=== PATIENT | female | born 1940 | race Caucasian/White ===

== ENCOUNTER 2016-09-22 08:04 | Day surgery (SDC) | payer MEDICARE ==
[~2016-09-22 08:04] MED LIST: PHENYLEPHRINE 2.5% OPHTH 2 ML DROPS ONE
[2016-09-22] MEDS ORDERED: PHENYLEPHRINE 2.5% OPHTH 2 ML DROPS OPTH ONE (08:25)
[2016-09-22] MEDS ORDERED: KETOROLAC 0.45% OPHTH DROPS OPTH ONE (08:25)
[2016-09-22] MEDS ORDERED: CYCLOPENTOLATE 1% OPHTH DROPS 2 ML OPTH ONE (08:25)
[2016-09-22] MEDS ORDERED: PROPARACAINE 0.5% OPHTH DROPS 15 ML OPTH ONE ×2 (08:25→09:30)
[2016-09-22] MEDS ORDERED: LACTATED RINGERS 500 ML IV ONE (08:50)
[2016-09-22] MEDS ORDERED: MIDAZOLAM 2 MG/2 ML VIAL IVP ONE (09:29)
[2016-09-22] MEDS ORDERED: TRIAMCIN/MOXIFLOX/VANCO 1 ML VIAL IO ONE ×2 (09:30)
[2016-09-22] MEDS ORDERED: BSS/LIDOCAINE/EPINEPHRINE 1 ML SYRINGE IO ONE ×2 (09:30)
[2016-09-22] MEDS ORDERED: EPINEPHrine 1 MG/ML AMP IVP ONE ×2 (09:30)
[2016-09-22] MEDS ORDERED: TIMOLOL 0.5% OPHTH DROPS OPTH ONE (09:30)
[2016-09-22] MEDS ORDERED: BRIMONIDINE 0.2% OPHTH DROPS 5 ML OPTH ONE (09:30)
[2016-09-22] MEDS ORDERED: CHONDR SULF/HYALURONATE SYRINGE IO ONE (09:30)
== END 2016-09-22 08:05 | disposition home or self-care (01) ==
PROC: 08RJ3JZ Replacement of Right Lens with Synthetic Substitute, Percutaneous Approach (ICD-10-PCS; principal; 2016-09-22 09:15)
DX: H25.811 Combined forms of age-related cataract, right eye (principal); I10 Essential (primary) hypertension; F32.9 Major depressive disorder, single episode, unspecified
CPT/HCPCS: 66984; A9270; V2632

== ENCOUNTER 2019-01-31 08:00 | Outpatient (CLI) | payer MEDICARE ==
[2019-01-31 14:41] LABS: CALCIUM 9.2 mg/dL (8.5-10.3); CREATININE 1.2 mg/dL (0.4-1.0)
== END 2019-01-31 23:59 | disposition home or self-care (01) ==
LOC: LAB.N 08:00
PROVIDERS: ATTEND Physician Assistant
DX: I15.9 Secondary hypertension, unspecified (principal); E78.5 Hyperlipidemia, unspecified
CPT/HCPCS: 36415; 80048

== ENCOUNTER 2019-05-13 07:46 | Outpatient (CLI) | payer MEDICARE ==
[2019-05-13 13:04] LABS: CALCIUM 9.3 mg/dL (8.5-10.3)
== END 2019-05-13 08:00 | disposition home or self-care (01) ==
LOC: LAB.N 07:46
PROVIDERS: ATTEND Physician Assistant
DX: I15.9 Secondary hypertension, unspecified (principal); E78.5 Hyperlipidemia, unspecified
CPT/HCPCS: 36415; 80048

== ENCOUNTER 2020-08-20 16:13 | Outpatient (CLI) | payer MEDICARE | END 2020-08-20 16:14 | disposition home or self-care (01) | LOC: COV 16:13 | PROVIDERS: ATTEND Ophthalmology | DX: Z01.812 Encounter for preprocedural laboratory examination (principal); Z20.828 Contact with and (suspected) exposure to other viral communicable diseases; H25.11 Age-related nuclear cataract, right eye ==

== ENCOUNTER 2020-08-27 09:48 | Day surgery (SDC) | payer MEDICARE ==
[~2020-08-27 09:48] MED LIST changes: +KETOROLAC 0.45% OPHTH DROPS ONE; +PROPARACAINE 0.5% OPHTH DROPS 15 ML ONE
[2020-08-27] MEDS ORDERED: TRIAMCIN/MOXIFLOX OPHTHALMIC 0.6 ML VIAL IO ONE ×2 (09:52→10:47)
[2020-08-27] MEDS ORDERED: EPINEPHrine 1 MG/ML AMP ONE (09:52)
[2020-08-27] MEDS ORDERED: TIMOLOL 0.5% OPHTH DROPS ONE (09:52)
[2020-08-27] MEDS ORDERED: BSS/LIDOCAINE/EPINEPHRINE 1 ML SYRINGE ONE (09:52)
[2020-08-27] MEDS ORDERED: BRIMONIDINE 0.2% OPHTH DROPS 5 ML ONE (09:52)
[2020-08-27] MEDS ORDERED: VANCOMYCIN OPHTHALMI 8MG/0.8ML 8 MG/0.8 ML SYRINGE IO ONE ×2 (09:53→10:48)
[2020-08-27] MEDS ORDERED: MIDAZOLAM 2 MG/2 ML VIAL ONE (10:16)
--- NOTE | 2020-08-27 10:32 | ANESTHESIA ---
Pre-Anesthesia VS, & Labs - Diagnosis nuclear sclerotic cataract - Procedure left cataract extraction with IOL Vital Signs: Temp Pulse Resp BP Pulse Ox 36.5 C 84 16 140/83 H 96 08/27/20 10:16 08/27/20 10:16 08/27/20 10:16 08/27/20 10:16 08/27/20 10:16 Height: 5 ft Weight (kg): 79.2 kg Body Mass Index: 34.1 BMI Classification: Obese - NPO >8 hours - Is Patient ?: No Home Medications and Allergies Dextroamphetamine/Amphetamine [Adderall 10 mg Tablet] 10 mg PO DAILY 09/22/16 Felodipine [Felodipine ER] 2.5 mg PO DAILY 09/22/16 Mirtazapine 7.5 mg PO DAILY 09/22/16 Omeprazole [PriLOSEC] 20 mg PO DAILY 09/22/16 Allergies/Adverse Reactions: Allergies Allergy/AdvReac Type Severity Reaction Status Date / Time No Known Drug Allergies Allergy Verified 09/22/16 08:45 Anes History & Medical History - Anesthetic History Anesthesia Complications: reports: No previous complications - Medical History Cardiovascular: reports: Hypertension Pulmonary: reports: None Gastrointestinal: reports: None Urinary: reports: None Musculoskeletal: reports: None Endocrine/Autoimmune: reports: None Skin: reports: None History of Cancer?: Yes - Surgical History General: Appendectomy, Colonoscopy Gynecologic: Other Orthopedic: Other Dermatologic: Skin cancer surgery Exam General: Alert Dental: WNL Mouth Opening: Greater than 4 Fingerbreadths Mallampati classification: II Thyromental Distance: greater than 6 cm Respiratory: Lungs clear Cardiovascular: Regular rate Plan Anesthesia Type: MAC Consent for Procedure(s) Verified and Reviewed: Yes Code Status: Attempt Resuscitation ASA classification: 2-Mild systemic disease Is this case an emergency?: No
[2020-08-27] MEDS ORDERED: BRIMONIDINE 0.2% OPHTH DROPS 5 ML OPTH ONE (10:46)
[2020-08-27] MEDS ORDERED: TIMOLOL 0.5% OPHTH DROPS OPTH ONE (10:46)
[2020-08-27] MEDS ORDERED: CHONDR SULF/HYALURONATE SYRINGE IO ONE (10:46)
[2020-08-27] MEDS ORDERED: EPINEPHrine 1 MG/ML AMP IR ONE (10:46)
[2020-08-27] MEDS ORDERED: PROPARACAINE 0.5% OPHTH DROPS 15 ML EACHEYE ONE (10:47)
[2020-08-27] MEDS ORDERED: BSS/LIDOCAINE/EPINEPHRINE 1 ML SYRINGE IO ONE (10:47)
--- NOTE | 2020-08-27 11:50 | OPERATIVE REPORT ---
DATE OF SERVICE: 08/27/2020 Physician: Jason Brooks MD PREOPERATIVE DIAGNOSIS: Visually significant cataract, left eye. Cataract surgery was performed on the right eye on 09/22/2016. POSTOPERATIVE DIAGNOSIS: Visually significant cataract, left eye. Cataract surgery was performed on the right eye on 09/22/2016. PROCEDURE: Phacoemulsification with posterior chamber intraocular lens implant, left eye. SURGEON: Jason Brooks MD. ANESTHESIA: Monitored anesthesia care. COMPLICATIONS: None. OPERATIVE INDICATIONS: This is a 79-year-old woman with progressive vision loss in the left eye due to 2+ nuclear sclerotic cataract. Best corrected visual acuity was 20/25 with glare to 20/500 in the left eye. Indications for surgery are overall decrease in vision, difficulty seeing words, closed caption or game scores on TV, difficulty driving in low light or at night, difficulty driving at night because of headlights from other vehicles, and difficulty with glare or bright lights in any situation. She was consented at length concerning risks and benefits of cataract surgery, after which she expressed a desire to proceed with surgery. OPERATIVE PROCEDURE: The patient was taken in to OR #3 and placed under monitored anesthesia care. A surgical timeout was conducted, confirming correct patient, correct procedure, and correct surgical site. She was given topical anesthesia and prepped and draped in the usual sterile fashion. The eye was entered at the 6- and 3-o'clock positions. Intracameral Shugarcaine was injected into the anterior chamber followed by Viscoat. A continuous-tear curvilinear capsulorrhexis was performed. The nucleus was hydrodissected and phacoemulsified. The cortex was evacuated using automated infusion and aspiration. Provisc was injected in the capsular bag and a 20.5-diopter intraocular lens inserted into the bag. Infusion and aspiration were used to evacuate the viscoelastic materials. The eye was inflated to physiologic pressure using balanced salt solution and found to be watertight. Approximately 0.25 mL of a mixture of triamcinolone and moxifloxacin was injected transsclerally into the vitreous in the inferotemporal quadrant. An additional 0.55 mL of a mixture of triamcinolone, moxifloxacin, and vancomycin was injected subconjunctivally in the superior quadrant for infection and inflammation prophylaxis. Wound integrity was checked with Weck-Noelle sponges. The patient was taken from the operating room in good condition and given postoperative instructions. TD: 08/27/2020 11:05 j DELORIS
[2020-08-27 12:12] VITALS: BP 129/72
--- NOTE | 2020-08-27 14:52 | ANESTHESIA POST OP EVALUATION ---
Anesthesia Post Eval - Post Anesthesia Eval Vitals: Last Vital Signs Temp 36.7 C 08/27/20 10:55 Pulse 83 08/27/20 10:55 Resp 18 08/27/20 10:55 BP 129/72 08/27/20 10:55 Pulse Ox 97 08/27/20 10:55 CV Function Including HR & BP: positive: Stable Pain Control: positive: Satisfactory Nausea & Vomiting: positive: Negative Mental Status: positive: Patient Participates Respiratory Status: Airway Patent Hydration Status: Satisfactory Anesthesia Complications: positive: None
--- OUTSIDE RECORDS SUMMARY | 2020-09-02 01:04 | EXTERNAL MEDICAL SUMMARY RPT | Continuity of Care Document ---
:1940 Demographics Phone Unavailable Preferred Language Bur[place]ian Marital Status Unknown Amish Affiliation Unknown Race Unknown Ethnic Group Unknown Author Organization [place] Address [address] [place] [address] Phone Care Team Providers Name Role Phone Blaine Unavailable Unavailable Russ Unavailable Unavailable Problems date description facility 2016-09-22 08:04 MAJOR DEPRESSIVE DISORDER, SINGLE [facility] EPISODE, UNSPECIFIED 2016-09-22 08:04 COMBINED FORMS OF AGE-RELATED [facility] CATARACT, RIGHT EYE 2016-09-22 08:04 ESSENTIAL (PRIMARY) HYPERTENSION [facility] 2019-01-31 08:00 HYPERLIPIDEMIA, UNSPECIFIED [facility] 2019-01-31 08:00 SECONDARY HYPERTENSION, [facility] UNSPECIFIED 2019-05-13 07:46 HYPERLIPIDEMIA, UNSPECIFIED [facility] 2019-05-13 07:46 SECONDARY HYPERTENSION, [facility] UNSPECIFIED 2020-06-05 15:04 Age-related osteoporosis without [facility] current pathological fractu 2020-06-05 15:04 Encounter for screening mammogram [facility] for malignant neoplasm of 2020-07-02 14:53 Other abnormal and inconclusive [facility] findings on diagnostic imagi Allergies date description facility SULFA ANTIBIOTICS [facility] NO KNOWN ALLERGIES [facility] Medic [facility] Peridot NO KNOWN ENVIRONMENTAL ALLERGIES [facility] PENICILLINS [facility] THIOPENTAL SODIUM [facility] ESCITALOPRAM OXALATE [facility] Med ical Center Results test status date ordered by attending specimen russ e null F 2020-08-20 [id number] Jason Brooks 2020-07 16:14:00 11:05:00 facility observation status value reference units lab [facility] - Report scanned to Patient' s EMR. Testing [facility] at [facility] Social History date description facility [id number]
== END 2020-08-27 09:49 | disposition home or self-care (01) ==
LOC: SDS 09:48
PROVIDERS: ATTEND Ophthalmology
DX: H25.12 Age-related nuclear cataract, left eye (principal); Z98.41 Cataract extraction status, right eye; F32.9 Major depressive disorder, single episode, unspecified; E66.9 Obesity, unspecified; Z68.34 Body mass index [BMI] 34.0-34.9, adult; I10 Essential (primary) hypertension
CPT/HCPCS: 66984; A9270; J3490; V2632

== ENCOUNTER 2022-03-19 08:00 | Outpatient (CLI) | payer MEDICARE | END 2022-03-19 23:59 | disposition home or self-care (01) | LOC: LAB.N 08:00 | PROVIDERS: ATTEND Physician Assistant | DX: R30.0 Dysuria (principal) | CPT/HCPCS: 87086; 87181 ==

== ENCOUNTER 2022-07-29 07:10 | Outpatient (CLI) | payer MEDICARE ==
[2022-07-29 12:26] LABS: BASOPHILS % (AUTO) 0.7 %; EOSINOPHILS # (AUTO) 0.1 10^3/uL (0.0-0.7); HCT - HEMATOCRIT 45.5 % (37.0-47.0); HGB - HEMOGLOBIN 15.2 g/dL (12.0-16.0); LYMPHOCYTES # (AUTO) 2.3 10^3/uL (1.5-3.5); LYMPHOCYTES % (AUTO) 38.6 %; MEAN CORPUSCULAR HEMOGLOBIN 33.1 pg (27.0-31.0); MEAN CORPUSCULAR HGB CONC 33.4 g/dL (32.0-36.0); MEAN CORPUSCULAR VOLUME 99.1 fL (81.0-99.0); MEAN PLATELET VOLUME 10.2 fL (7.9-10.8); MONOCYTES # (AUTO) 0.6 10^3/uL (0.0-1.0); MONOCYTES % (AUTO) 9.7 %; NEUTROPHILS # (AUTO) 2.9 10^3/uL (1.5-6.6); NEUTROPHILS % (AUTO) 48.8 %; PLT - PLATELET COUNT 296 10^3/uL (130-450); RED BLOOD COUNT 4.59 10^6/uL (4.20-5.40); RED CELL DISTRIBUTION WIDTH 12.8 % (12.0-15.0); WHITE BLOOD COUNT 5.9 x10^3/uL (4.8-10.8)
[2022-07-29 12:51] LABS: ALBUMIN/GLOBULIN RATIO 1.3 (1.0-2.2); ALKALINE PHOSPHATASE 102 IU/L (42-121); ALT ALANINE AMINOTRANSFERASE 25 IU/L (10-60); AST ASPARTATE AMINOTRANSFERASE 29 IU/L (10-42); BILIRUBIN,DIRECT 0.1 mg/dL (0.1-0.5); BILIRUBIN,TOTAL 0.4 mg/dL (0.2-1.0); BUN - BLOOD UREA NITROGEN 21 mg/dL (6-20); CALCIUM 9.4 mg/dL (8.5-10.3); CARBON DIOXIDE - CO2 29 mmol/L (21-32); CHLORIDE 105 mmol/L (101-111); CHOL/HDL RATIO 3.4 (<4.4); CHOLESTEROL 236 mg/dL; CREATININE 0.9 mg/dL (0.4-1.0); GFR - MDRD 60 (>89); GLUCOSE 92 mg/dL (70-100); HDL CHOLESTEROL 70 mg/dL; LDL CHOLESTEROL,CALCULATED 151 mg/dL; LDL/HDL RATIO 2.2 (<4.4); SODIUM 143 mmol/L (135-145); TOTAL PROTEIN 7.1 g/dL (6.7-8.2); TRIGLYCERIDES 73 mg/dL; VLDL CHOLESTEROL 15 mg/dL
== END 2022-07-29 07:11 | disposition home or self-care (01) ==
LOC: LAB.N 07:10
PROVIDERS: ATTEND Registered Nurse Diabetes Educator
DX: I10 Essential (primary) hypertension (principal); C50.911 Malignant neoplasm of unspecified site of right female breast; E78.2 Mixed hyperlipidemia; R74.8 Abnormal levels of other serum enzymes
CPT/HCPCS: 36415; 80053; 80061; 80076; 82248; 83721; 85025

== ENCOUNTER 2023-04-17 15:31 | Outpatient (CLI) | payer MEDICARE | END 2023-04-17 15:32 | disposition home or self-care (01) | LOC: LAB.N 15:31 | PROVIDERS: ATTEND Registered Nurse Diabetes Educator | DX: M81.0 Age-related osteoporosis without current pathological fracture (principal) | CPT/HCPCS: 36415; 82306 ==

== ENCOUNTER 2024-05-09 10:50 | Outpatient (CLI) | payer MEDICARE ==
[2024-05-09 17:48] LABS: HCT - HEMATOCRIT 46.1 % (37.0-47.0); HGB - HEMOGLOBIN 15.1 g/dL (12.0-16.0); MEAN CORPUSCULAR HEMOGLOBIN 33.1 pg (27.0-31.0); MEAN CORPUSCULAR HGB CONC 32.8 g/dL (32.0-36.0); MEAN CORPUSCULAR VOLUME 101.1 fL (81.0-99.0); MEAN PLATELET VOLUME 11.2 fL (7.9-10.8); RED BLOOD COUNT 4.56 10^6/uL (4.20-5.40); RED CELL DISTRIBUTION WIDTH 13.1 % (12.0-15.0); WHITE BLOOD COUNT 5.7 x10^3/uL (4.8-10.8)
[2024-05-09 18:30] LABS: ALBUMIN 4.1 g/dL (3.2-5.5); ALBUMIN/GLOBULIN RATIO 1.6 (1.0-2.2); ALKALINE PHOSPHATASE 76 IU/L (42-121); ALT ALANINE AMINOTRANSFERASE 14 IU/L (10-60); AST ASPARTATE AMINOTRANSFERASE 19 IU/L (10-42); BILIRUBIN,TOTAL 0.4 mg/dL (0.2-1.0); BUN - BLOOD UREA NITROGEN 17 mg/dL (6-20); CALCIUM 9.5 mg/dL (8.5-10.3); CARBON DIOXIDE - CO2 30 mmol/L (21-32); CHLORIDE 106 mmol/L (101-111); CHOL/HDL RATIO 3.2 (<4.4); CHOLESTEROL 239 mg/dL; GFR - MDRD 53 (>89); GLUCOSE 104 mg/dL (74-104); HDL CHOLESTEROL 75 mg/dL; LDL CHOLESTEROL,CALCULATED 149 mg/dL; POTASSIUM 4.2 mmol/L (3.5-4.5); SODIUM 142 mmol/L (135-145); TOTAL PROTEIN 6.6 g/dL (6.4-8.9); TRIGLYCERIDES 76 mg/dL; VLDL CHOLESTEROL 15 mg/dL
== END 2024-05-09 10:51 | disposition home or self-care (01) ==
LOC: LAB.N 10:50
PROVIDERS: ATTEND Registered Nurse Diabetes Educator
DX: E78.2 Mixed hyperlipidemia (principal); R74.8 Abnormal levels of other serum enzymes; I15.9 Secondary hypertension, unspecified
CPT/HCPCS: 36415; 80053; 80061; 83721; 85027